=== PATIENT | male | born 2000 | race Caucasian/White ===

== ENCOUNTER 2020-10-17 23:56 | Emergency (ER) | payer OTHER, SELFPAY ==
--- NOTE | ~2020-10-17 | CT_ITS ---
EXAMINATION: CT abdomen pelvis w con DATE: 10/18/2020 02:45 INDICATION: Right abdominal pain. TECHNIQUE: Computed tomography (CT) of the abdomen and pelvis was performed with 100 mL Omnipaque 350 intravenous contrast. Automated exposure control and iterative reconstruction technique were employe d. The dose-length product was 195.71 mGy-cm. COMPARISON: None. FINDINGS: The visualized portions of the lung bases are clear without pneumonia or pleural effusion. The heart size is normal. No pericardial effusion. There is a 5 mm cyst in the liver. Calcifications in the spleen are consistent with old granulomatous disease. The gallbladder, pancreas, adrenal gland s, and left kidney are normal. There is a 4 mm stone in right kidney. There are no dilated loops of b owel. The appendix is not visualized. There are no pathologically enlarged lymph nodes. There is no f ree intraperitoneal fluid. There is levocurvature of lumbar spine. IMPRESSION: 1. 4 mm nonobstructing right kidney stone. Reviewed, dictated and finalized at location A.
[2020-10-18 00:25] VITALS: BP 142/71; PULSE 85; RESP 18; TEMP 36.9; O2SAT 99
[2020-10-18 00:32] LABS: Basophils Percent Auto 0.5 % (0.2-1.2); Eosinophils Absolute Auto 0.3 K/mm3 (0-0.3); Eosinophils Percent Auto 2.9 % (0-4.4); Hematocrit 43.3 % (42.0-52.0); Immature Granulocyte Absolute 0.03 K/mm3 (0.00-0.031); Immature Granulocyte Percent A 0.3 % (0-0.5); Lymphocytes Absolute Auto 3.31 K/mm3 (0.9-3.2); Lymphocytes Percent Auto 37.5 % (18.3-44.2); Mean Corpuscular HGB Conc 34.6 g/dl (32-36); Mean Corpuscular Hemoglobin 30.3 pg (26-34); Mean Corpuscular Volume 87.5 fl (80-100); Mean Platelet Volume 10.2 fl (7.4-10.4); Monocytes Absolute Auto 0.5 K/mm3 (0.1-0.6); Monocytes Percent Auto 6.1 % (2.6-8.5); Neutrophils Absolute Auto 4.7 K/mm3 (1.3-6.7); Neutrophils Percent Auto 52.7 % (45.5-73.1); Platelet Count Result 215 k/mm3 (150-375); Red Blood Count 4.95 M/mm3 (4.6-6.20); Red Cell Distribution Width 12.1 % (11.5-14.5); White Blood Count 8.8 K/mm3 (4.5-10.0)
[2020-10-18 00:37] LABS: Add Urine Microscopic? YES; Appearance Urine Cloudy (Clear); Bilirubin Urine Negative (Negative); Blood Urine Negative (Negative); Color Urine Yellow (Yellow); Glucose Urine UA Negative (Negative); Ketones Urine Negative (Negative); Leukocyte Esterase Ur Negative LEU/UL (Negative); Mucus Urine Few /lpf; Nitrate Urine Negative (Negative); Protein Urine 1+ mg/dL (Negative); RBC Urine 0-2 /hpf (0-2); Specific Grav Ur 1.024 (1.001-1.035); WBC Urine 0-3 /hpf
[2020-10-18 00:51] LABS: Alanine Aminotransferase 9 U/L (4-50); Albumin Level 4.9 g/dL (3.5-5.1); Alkaline Phosphatase 45 U/L (38-126); Anion Gap 8 mmol/L (8-16); Aspartate Amino Transferase 21 U/L (17-59); Bilirubin,Total 0.5 mg/dL (0.2-1.3); Blood Urea Nitrogen 16 mg/dL (9-20); Calcium 10.2 mg/dL (8.4-10.2); Carbon Dioxide 25 mmol/L (22-30); Chloride 109 mmol/L (98-107); Estimated CRCL calculation 74 ml/min; Estimated Glomerular Filt Rate > 60; Glucose 117 mg/dL (75-110); Lipase 69 U/L (23-300); Potassium 3.5 mmol/L (3.4-5.0); Sodium 142 mmol/L (137-145)
[2020-10-18] MEDS: KETOROLAC 30 MG/ML VIAL (*BKC) IV PUSH (02:28)
[2020-10-18] MEDS: SODIUM CHLORIDE 0.9% IV 1,000 ML 999 ML IV CONT (02:28)
[2020-10-18 02:58] VITALS: BP 138/72; PULSE 72; RESP 16; O2SAT 98
--- NOTE | 2020-10-18 04:00 | ED.GENADULT ---
HPI - General Adult General Chief complaint: Abdominal Pain Stated complaint: abd pain, nausea Time Seen by Provider: 10/18/20 02:08 History of Present Illness HPI narrative: Patient is a 19-year-old gentleman who presents the emergency department with chief complaint of right-sided abdominal pain. Patient states been going on for approximately 4 days reports it is worse whenever he moves reports that has had no nausea vomiting or diarrhea. Patient states that this not improved by anything and is worsened as previously described with movement. Patient denies fever denies chills denies diarrhea. Related Data Allergies Allergy/AdvReac Type Severity Reaction Status Date / Time No Known Allergies Allergy Verified 10/18/20 02:11 Review of Systems Review of Systems: Narrative: A 10 system review of systems was completed on the patient and is negative except for what is stated in the HPI. Nursing and ancillary documentation was reviewed. [facility] Social History Social History Gender identity (if verbalized by the patient): Male Exam Narrative: Exam Narrative: GENERAL: Well-appearing, well-nourished, and in no acute distress. HEAD: Normocephalic, atraumatic. EYES: PERRLA and EOMI. ENT: Nares clear, no rhinorrhea or epistaxis. Mucous membranes moist. NECK: Supple. CHEST: Clear to auscultation. No respiratory distress. HEART: Regular rate and rhythm. No murmur heard. Normal peripheral pulses. ABDOMEN: Soft, mild tenderness to palpation in the right flank and right side of the abdomen, nondistended, normal active bowel sounds. EXTREMITIES: Normal range of motion. No edema. SKIN: Warm, dry, no rash. NEURO: No focal deficits. Alert and oriented x3. PSYCH: Normal mood and affect. Course Course Emergency Course: CT scan showed no evidence of acute abnormality Vital Signs Vital signs: Vital Signs Temperature 36.9 C 10/18/20 00:25 Pulse Rate 85 10/18/20 00:25 Respiratory Rate 18 10/18/20 00:25 Blood Pressure 142/71 H 10/18/20 00:25 Pulse Oximetry 99 10/18/20 00:25 Temperature 36.9 C 10/18/20 00:25 Pulse Rate 85 10/18/20 00:25 Respiratory Rate 18 10/18/20 00:25 Blood Pressure 142/71 H 10/18/20 00:25 Pulse Oximetry 99 10/18/20 00:25 Medical Decision Making Vital Signs Vital Signs: Vital Signs Temperature 36.9 C 10/18/20 00:25 Pulse Rate 85 10/18/20 00:25 Respiratory Rate 18 10/18/20 00:25 Blood Pressure 142/71 H 10/18/20 00:25 Pulse Oximetry 99 10/18/20 00:25 Temperature 36.9 C 10/18/20 00:25 Pulse Rate 85 10/18/20 00:25 Respiratory Rate 18 10/18/20 00:25 Blood Pressure 142/71 H 10/18/20 00:25 Pulse Oximetry 99 10/18/20 00:25 Lab Data Result diagrams: 10/18/20 00:18 10/18/20 00:18 Labs: Lab Results 10/18/20 10/18/20 10/18/20 Range/Units 00:18 00:18 00:18 WBC 8.8 (4.5-10.0) K/mm3 RBC 4.95 (4.6-6.20) M/mm3 Hgb 15.0 (14.0-18.0) g/dL Hct 43.3 (42.0-52.0) % MCV 87.5 (80-100) fl MCH 30.3 (26-34) pg MCHC 34.6 (32-36) g/dl RDW 12.1 (11.5-14.5) % Plt Count 215 (150-375) k/mm3 MPV 10.2 (7.4-10.4) fl Immature Gran % (Auto) 0.3 (0-0.5) % Neut % (Auto) 52.7 (45.5-73.1) % Lymph % (Auto) 37.5 (18.3-44.2) % [place] % (Auto) 6.1 (2.6-8.5) % Eos % (Auto) 2.9 (0-4.4) % Baso % (Auto) 0.5 (0.2-1.2) % Lymph # (Auto) 3.31 H (0.9-3.2) K/mm3 [place] # (Auto) 0.5 (0.1-0.6) K/mm3 Eos # (Auto) 0.3 (0-0.3) K/mm3 Baso # (Auto) 0.0 (0.0-0.1) K/mm3 Abs Immat Gran (auto) 0.03 (0.00-0.031) K/mm3 Absolute Neuts (auto) 4.7 (1.3-6.7) K/mm3 Absolute Nucleated RBC 0.0 (0.0-0.012) K/mm3 Nucleated RBC % 0.0 (0.0-0.2) % Sodium 142 (137-145) mmol/L Potassium 3.5 (3.4-5.0) mmol/L Chloride 109 H (98-107) mmol/L Carbon Dioxide 25 (22-30) mmol/L Anion G
[2020-10-18 04:16] VITALS: BP 142/70; PULSE 76; RESP 18; O2SAT 98
== END 2020-10-18 04:15 | disposition home or self-care (01) ==
PROVIDERS: Emergency Provider Emergency Medicine
DX: R10.84 Generalized abdominal pain (principal)
CPT/HCPCS: 36415; 74177; 80053; 81001; 83690; 85025; 96361; 96374; 99284; J1885; J7030; Q9967

== ENCOUNTER 2023-04-28 15:09 | Emergency (ER) | payer OTHER, SELFPAY ==
[2023-04-28 15:15] VITALS: BP 107/70; PULSE 100; RESP 16; TEMP 37.2; O2SAT 100
--- NOTE | 2023-04-28 17:45 | ED.SKABFB ---
HPI - Skin/Abscess/Foreign Bdy General Chief complaint: Skin/Abscess/Foreign Body <YAKOV Samaniego Last Filed: 04/28/23 19:26> Stated complaint: random knot under chin <Abbi Rich PA-C - Last Filed: 04/28/23 19:26> Time Seen by Provider: 04/28/23 16:30 <YAKOV Samaniego Last Filed: 04/28/23 19:26> History of Present Illness HPI narrative: 22-year-old male reports for evaluation for a lump under his chin for the past 2 months. Patient states the area was painful a few days ago but has since become nonpainful. He does report intermittent dental pain but otherwise denies sources of infection in his mouth, sore throat, ear pain, cough or congestion. He does not have a PCP. He does endorse night sweats but denies fever and unintentional weight loss. <YAKOV Samaniego Last Filed: 04/28/23 19:26> Related Data Home medications: Home Medications Medication Instructions Recorded Confirmed mirtazapine 15 mg tablet mg 04/28/23 04/28/23 quetiapine 100 mg tablet mg 04/28/23 <YAKOV Samaniego Last Filed: 04/28/23 19:26> Allergies/Adverse reactions: Allergies Allergy/AdvReac Type Severity Reaction Status Date / Time No Known Allergies Allergy Verified 04/28/23 16:40 <YAKOV Samaniego Last Filed: 04/28/23 19:26> Review of Systems Review of Systems: CONSTITUTIONAL: Denies fever, chills EYES: Denies visual changes, redness, or discharge. ENT: See HPI CARDIOVASCULAR: Denies chest pain, palpitations, or edema. RESPIRATORY: Denies cough or dyspnea. GASTROINTESTINAL: Denies abdominal pain, nausea, vomiting, or diarrhea. GENITOURINARY: Denies dysuria or hematuria. SKIN: Denies rash or itching. MUSCULOSKELETAL: Denies back pain, joint pain, or myalgia. NEUROLOGIC: Denies headache, numbness, dizziness, or weakness. PSYCHIATRIC: Denies anxiety or depression. <YAKOV Samaniego Last Filed: 04/28/23 19:26> [facility] Social History Social History: Social History Gender identity (if verbalized by the patient): Male <Abbi Rich PA-C - Last Filed: 04/28/23 19:26> Exam Narrative: GENERAL: Well-appearing, in no acute distress. Patient resting comfortably in exam bed. He is pleasant and conversational. HEAD: Normocephalic EYES: PERRLA ENT: Nares clear. Mucous membranes moist. Oropharynx without tonsillar hypertrophy exudate or other lesions. No evidence of dental infection or periapical abscess. Floor mouth is soft without crepitus. There is a 0.5 cm firm mobile right submental lymph node that is nontender to palpation with no overlying skin changes. There are few shotty anterior cervical enlarged lymph nodes. No other lymphadenopathy. Bilateral cerumen impaction. NECK: Supple. CHEST: No respiratory distress. Clear to auscultation, no adventitious breath sounds. HEART: Regular rate and rhythm. No murmur heard. Normal peripheral pulses. EXTREMITIES: Normal range of motion. No edema. SKIN: Warm, dry, no rash. NEURO: No focal deficits. Alert and oriented x3. PSYCH: Normal mood and affect. <Abbi Rich PA-C - Last Filed: 04/28/23 19:26> Course Course Emergency Course: ROLAND: Patient was handed off to me pending a monoscreen and this is negative. He will be discharged home in stable condition. <Nasim Farias PA-C - Last Filed: 04/29/23 00:11> Vital Signs Vital signs: Vital Signs Temperature 99 F 04/28/23 15:15 Pulse Rate 100 04/28/23 15:15 Respiratory Rate 16 04/28/23 15:15 Blood Pressure 107/70 04/28/23 15:15 Pulse Oximetry 100 04/28/23 15:15 Oxygen Delivery Room Air 04/28/23 15:15 Temperature 98.4 F 04/28/23 19:34 Pulse Rate 95 04/28/23 19:34 Respiratory Rate 14 04/28/23 19:34 Blood Pressure 146/103 H 04/28/23 19:34 Pulse Oximetry 98 04/28/23 19:34 Oxygen Delivery Room Air 04/28/23 15:
[2023-04-28 18:07] LABS: Basophils Absolute Auto 0.1 K/mm3 (0.0-0.1); Basophils Percent Auto 0.6 % (0.2-1.2); Eosinophils Absolute Auto 0.1 K/mm3 (0-0.3); Eosinophils Percent Auto 0.8 % (0-4.4); Hematocrit 50.5 % (42.0-52.0); Hemoglobin 16.9 g/dL (14.0-18.0); Immature Granulocyte Absolute 0.02 K/mm3 (0.00-0.031); Immature Granulocyte Percent A 0.2 % (0-0.5); Lymphocytes Absolute Auto 3.09 K/mm3 (0.9-3.2); Lymphocytes Percent Auto 29.3 % (18.3-44.2); Mean Corpuscular HGB Conc 33.5 g/dl (32-36); Mean Corpuscular Hemoglobin 30.1 pg (26-34); Mean Platelet Volume 9.9 fl (7.4-10.4); Monocytes Absolute Auto 0.6 K/mm3 (0.1-0.6); Monocytes Percent Auto 5.7 % (2.6-8.5); Neutrophils Absolute Auto 6.7 K/mm3 (1.3-6.7); Neutrophils Percent Auto 63.4 % (45.5-73.1); Platelet Count Result 210 k/mm3 (150-375); Red Blood Count 5.61 M/mm3 (4.6-6.20); Red Cell Distribution Width 11.9 % (11.5-14.5); White Blood Count 10.5 K/mm3 (4.5-10.0)
[2023-04-28 18:18] LABS: Anion Gap 11 mmol/L (8-16); Blood Urea Nitrogen 22 mg/dL (9-20); Calcium 10.1 mg/dL (8.4-10.2); Carbon Dioxide 22 mmol/L (22-30); Chloride 105 mmol/L (98-107); Estimated CRCL calculation 71 ml/min; Estimated Glomerular Filt Rate > 60; Glucose 93 mg/dL (65-110); Potassium 3.9 mmol/L (3.4-5.0); Sodium 138 mmol/L (137-145)
[2023-04-28 18:55] VITALS: BP 104/75; PULSE 78; RESP 16; TEMP 37.1; O2SAT 100
[2023-04-28 19:28] LABS: Monoscreen Negative (Negative); Negative Monotest Control Negative (Negative); Positive Monotest Control Positive (Positive)
[2023-04-28 19:34] VITALS: BP 146/103; PULSE 95; RESP 14; TEMP 36.9; O2SAT 98
== END 2023-04-28 19:35 | disposition home or self-care (01) ==
PROVIDERS: Emergency Provider Physician Assistant
DX: R59.1 Generalized enlarged lymph nodes (principal)
CPT/HCPCS: 36415; 80048; 85025; 86308; 99283